=== PATIENT | male | born 1995 | race Caucasian/White ===

== ENCOUNTER 2018-07-22 13:34 | Emergency (ER) | payer OTHER ==
[~2018-07-22] VITALS: Ht 177.8 cm; Wt 81.7 kg
[~2018-07-22 13:34] MED LIST: AMOCLA875 PO; AZIT200SU PO; AZIT250 PO; CODACE30 PO; HYDHCL25 PO; Norco 5-325 Ta1 EACH PO; ONDA4ODT MM; RXCODACET PO
[2018-07-22] MEDS ORDERED: ONDA4ODT MM (13:50)
[2018-07-22] MEDS ORDERED: Vistaril25 MG PO (13:50)
== END 2018-07-22 13:46 | disposition home or self-care (01) ==
LOC: ER 13:34
DX: F11.23 Opioid dependence with withdrawal (principal); F17.200 Nicotine dependence, unspecified, uncomplicated
CPT/HCPCS: 99283